=== PATIENT | male | born 1935 | race Caucasian/White ===

== ENCOUNTER 2025-03-08 16:50 | Emergency (ER) | payer MEDICARE, OTHER, SELFPAY ==
--- OUTSIDE RECORDS SUMMARY | 2024-09-21 08:00 | XMS_ITS | Continuity of Care Document ---
Author Organization [facility] ic Address [address] [place] [address] Phone Care Team Providers Care Milk Collector Name Role Phone Dmitri Vera MD Unavailable Unavailable Allergies, Adverse Reactions, Alerts Substance Reaction Status Criticality codeine Unknown Active No Information Medications Medication Instructions Dosage Effective Dates (start - stop) Status Comments SIMVASTATIN (unknown strength) Not Available - Active JARDIANCE (unknown strength) Not Available - Active ALLOPURINOL (unknown strength) Not Available - Active ATORVASTATIN CALCIUM (unknown strength) Not Available - Active ELIQUIS (unknown strength) Not Available - Active FAMOTIDINE (unknown strength) Not Available - Active ASPIRIN (unknown strength) Not Available - Active PROPRANOLOL HCL (unknown strength) Not Available - Active METFORMIN HCL (unknown strength) Not Available - Active VITAMIN D2 (unknown strength) Not Available - Active IRON (unknown strength) Not Available - Ac tive OMEGA-3 PLUS VITAMIN D3 (unknown strength) Not Available - Active FLOVENT HFA (unknown strength) Not Available - Active Procedures Procedure Date Refraction Comprehensive Eye Code - Established Apr Refraction Comprehensive Eye Code - Established Apr Comprehensive Eye Code - Established Apr Refraction Lens sphcyl bifocal 4.00d/.1 Tint photochromatic lens/es [place] [employer] Refraction Comprehensive Eye Code - Established Jan Refraction Comprehensive Eye Code - Established Oct Comprehensive Eye Code - Established Oct Refraction IOL Master Extracapsular Cataract Removal 20 Extracapsular Cataract Removal 20 IOL Master IOL Master OCT-Macular Bilateral IOL Master Est Extended E&M LIBRARIAN HEAD Extended E&M IOL Master Advance Directives Directive Yes / No Effective Date File Name No Information Encounters Encounter Description Practice Location Reason(s) For Visit Diagnoses Date Provider Providers Copied on Encounter [facility], [address] [place], [place], [id number] , [place] tel: [phone] [facility] No Information [address] [place], [id number] , [place]. tel: [phone] [facility], [address] [place], [id number] , tel: [phone] [facility] Follow-up Diabetes (chief complaint) Myopia, bilateralType 2 diabetes mellitus without complicationsStrokePr esence of intraocular lensLong term (current) use of oral hypoglycemic drugs [address] [place], [id number] , [place]. tel: [phone] Referring Provider: Dmitri Moreno, [address] [address] [place], [address] . tel:[phone] [facility], [address] [place], [id number] , [place] tel: [phone] [facility] Follow-up Diabetes (chief complaint) Meibomian gland dysfunction right eye, upper and lower eyelidsMeibomian gland dysfunction left eye, upper and lower eyelidsPresence of intraocular lensVitreous degeneration, bilateralStrokeType 2 diabetes mellitus without complicationsLong term (current) use of oral hypoglycemic drugsMyopia, bilateral [address] [place], [id number] , [place]. tel: [phone] Referring Provider: Dmitri Moreno, [address] [place], [address] . tel:[phone] [facility], [address] [place], [id number] , [place] tel: [phone] [facility] No Information [address] [place], [id number] , [place]. tel: [phone] Referring Provider: Dmitri Moreno, [address] [place], [address] . tel:[phone] [place] [address], [address] [place], [id number] , [place] tel: [phone] [facility] follow-up diabetes (chief complaint) Type 2 diabetes mellitus without complicationsLong term (current) use of oral hypoglycemic drugsMeibomian gland dysfunction right eye, upper and lower eyelidsMeibomian gland dysfunction left eye, upper and lower eyelidsPresence of intraocular lensVitreous degeneration, bilateralMyopia, bilateralStroke [address] [place], [id number] , [place]. tel: [phone] Referring Provider: Dmitri Moreno, [address] [place], [address] . tel:[phone] [facility], [address] [place], [id number] , [place] tel: [phone] [facility] Diabetic eye exam (chief complaint) Type 2 diabetes mellitus without complicationsLong term (current) use of oral hypoglycemic drugsVitreous degeneration, bilateralMeibomian gland dysfunction right eye, upper and lower eyelidsMeibomian gland dysfunction left eye, upper and lower eyelidsMyopia, bilateralPresence of intraocular lens [address] [place] [place], [id number] , [place]. tel: [phone] Referring Provider: Dmitri Moreno, [address] [place], [address] . tel:[phone] [facility], [address], [place], [id number] , [place] tel: [phone] [facility] No Information 0 Jody Rizvi. [address] [place], [id number] , [place]. tel: [phone] Referring Provider: Ben Neves, [facility] [address], [address]. tel:[phone] [facility], [address] [place], [id number] , [place] tel: [phone] [facility] No Information 0 Jody Rizvi. [address] [place], [id number] , [place]. tel: [phone] Referring Provider: Ben Neves, [facility] [address], [address]. tel:[phone] [facility], [address] [place], [id number] , [place] tel: [phone] [facility] Age-related nuclear cataract of left eye 0 Jody Rizvi. [address] [place], [id number] , [place]. tel: [phone] Referring Provider: Ben Neves, [facility] [address] [facility] [place], [address]. tel:[phone] [facility], [address] [place], [id number] , [place] tel: [phone] [facility] blurry vision (chief complaint) Meibomian gland dysfunction right eye, upper and lower eyelidsMeibomian gland dysfunction left eye, upper and lower eyelidsAge-related nuclear cataract, bilateralPosterior subcapsular polar age-related cataract, bilateralCortical age-related cataract of left eyeType 2 diabetes mellitus without complicationsLong term (current) use of oral hypoglycemic drugsMyopia, bilateralVitreous degeneration, bilateral 0 Jody Rizvi. [address] [place], [id number] , [place]. tel: [phone] Referring Provider: Ben Neves, [facility] [address] [place], [address]. tel:[phone] [facility], [address] [place], [id number] , [place] tel: [phone] [facility] No Information 0 [employer] Dmitri. [address] [place], [id number] , [place]. tel: [phone] Family History Family Member Type Diagnosis Age At Onset No Information Payers Payer name Insurance type Covered alliance party ID Nitza jang(s) [employer] Medicare MB [id number] [employer] [id number] Social History Type Description Quantity Date Captured Comments Alcohol Use Details Unknown Caffeine Use Details Unknown Tobacco Use Status No Information Smoking Status No Information Sex Male Chief Complaint And Reason For Visit No Information Reason For Referral Reason For Referral No Information Plan Of Treatment Date Type Action Status Referral Referred To: Colin Jimenez [facility]
[address] [place], [phone] Ordered: Referrals: Allopathic & Osteopathic Physicians : Family Medicine. Colin Jimenez ordered History Of Present Illness Encounter Date Complaint History Of Prese nt Illness Follow-up Diabetes Pt states VA OU is unchanged sine last eye exam. Pt denies dryness and pain OU. Follow-up Diabetes The 87 year o ld patient presents for evaluation of Follow-up Diabetes. Pt. states VA OU stable distance and near over the past year. Current glasses working well. No eye pain or discomfort OU. follow-up diabetes The 86 year o ld male presents for evaluation of follow-up diabetes. Pt. states VA OU decreased distance and near over the past 8 months, Pt. had a stroke in May and VA has been off" since. Current glasses are working okay, wants an updated prescription. No eye pain or discomfort OU.Screening for COVID-19: Patient reports no close contact with known COVID-19. Patient denies any COVID-19 symptoms or recent travel. Diabetic eye exam Pt states VA O U unchanged since last exam for distance and near. Pt would like to transfer eye care to [facility]. Pt denies dryness and pain OU.Screening for COVID-19: Patient reports no close contact with known COVID-19. Patient denies any COVID-19 symptoms or recent travel. blurry vision Pt. states DVA O U gradually decreasing X6-9 months. NVA OU is okay. Notes some difficulty reading fine print when not in bright lighting. Denies any eye pain or discomfort OU. Screening for COVID-19; Patient reports no close contact with known COVID-19. Patient denies any COVID-19 symptoms or recent travel. Temperature screening within normal limits today. 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 Impression/Plan Related to Meibo henrietta gland dysfunction right eye, upper and lower eyelids Impression/Plan Related to Meibo henrietta gland dysfunction left eye, upper and lower eyelids Impression/Plan Related to Prese nce of intraocular lens Impression/Plan Related to Vitre ous degeneration, bilateral Impression/Plan Related to Strok e Impression/Plan Related to Type 2 diabetes mellitus without complications Impression/Plan Related to assisted (current) use of oral hypoglycemic drugs Impression/Plan Related to Myopi a, bilateral Impression/Plan Related to Strok e Impression/Plan Related to Type 2 diabetes mellitus without complications Impression/Plan Related to assisted (current) use of oral hypoglycemic drugs Impression/Plan Related to Meibo henrietta gland dysfunction right eye, upper and lower eyelids Impression/Plan Related to Meibo henrietta gland dysfunction left eye, upper and lower eyelids Impression/Plan Related to Prese nce of intraocular lens Impression/Plan Related to Vitre ous degeneration, bilateral Impression/Plan Related to Myopi a, bilateral Impression/Plan Related to Type 2 diabetes mellitus without complications Impression/Plan Related to assisted (current) use of oral hypoglycemic drugs Impression/Plan Related to Vitre ous degeneration, bilateral Impression/Plan Related to Meibo henrietta gland dysfunction right eye, upper and lower eyelids Impression/Plan Related to Meibo henrietta gland dysfunction left eye, upper and lower eyelids Impression/Plan Related to Myopi a, bilateral Impression/Plan Related to Prese nce of intraocular lens Impression/Plan Related to Age-r elated nuclear cataract of left eye Impression/Plan Related to Meibo henrietta gland dysfunction right eye, upper and lower eyelids Impression/Plan Related to Meibo henrietta gland dysfunction left eye, upper and lower eyelids Impression/Plan Related to Age-r elated nuclear cataract, bilateral Impression/Plan Related to Poste rior subcapsular polar age-related cataract, bilateral Impression/Plan Related to Corti tiffanie age-related cataract of left eye Impression/Plan Related to Myopi a, bilateral Impression/Plan Related to Vitre ous degeneration, bilateral Impression/Plan Related to Type 2 diabetes mellitus without complications Impression/Plan Related to terminal gauger (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
--- OUTSIDE RECORDS SUMMARY | 2024-09-21 08:00 | XMS_ITS | Continuity of Care Document ---
Author Organization [facility] ic Address [address] [place] [address] Phone Care Team Providers Care Electronics Processing Supervisor Name Role Phone Dmitri Vera MD Unavailable [...] OCT-Macular Bilateral IOL Master Est Extended E&M LOCKER ROOM ATTENDANT Extended E&M IOL Master Advance Directives Directive Yes / No Effective Date File Name No Information Encounters Encounter Description Practice Location Reason(s) For Visit Diagnoses Date Provider Providers Copied on Encounter [facility], [address] [place], [place], [id number] , [place] tel: [phone] [facility] No Information [address] [place], [id number] , [place]. tel: [phone] [facility], [address] [place] [place], [id number] , tel: [phone] [facility] Follow-up Diabetes (chief complaint) Myopia, bilateralType 2 diabetes mellitus without complicationsStrokePr esence of intraocular lensLong term (current) use of oral hypoglycemic drugs 5 [address] [place] [place], [id number] , [place]. tel: [phone] Referring Provider: Dmitri Moreno, [address] [address] [place], [address] . tel:[phone] [facility], [address] [place] [place], [id number] , [place] tel: [phone] [facility] Follow-up Diabetes (chief complaint) Meibomian gland dysfunction right eye, upper and lower eyelidsMeibomian gland dysfunction left eye, upper and lower eyelidsPresence of intraocular lensVitreous degeneration, bilateralStrokeType 2 diabetes mellitus without complicationsLong term (current) use of oral hypoglycemic drugsMyopia, bilateral [address] [place], [id number] , [place]. tel: [phone] Referring Provider: Dmitri Moreno, [address] [place], [address] . tel:[phone] [facility], [address] [place], [id number] , [place] tel: [phone] [facility] No Information [address] [place], [id number] , [place]. tel: [phone] Referring Provider: Dmitri Moreno, [address] [place], [address] . [phone] [place] [address], [address] [place] [place], [id number] , [place] tel: [phone] [facility] follow-up diabetes (chief complaint) Type 2 diabetes mellitus without complicationsLong term (current) use of oral hypoglycemic drugsMeibomian gland dysfunction right eye, upper and lower eyelidsMeibomian gland dysfunction left eye, upper and lower eyelidsPresence of intraocular lensVitreous degeneration, bilateralMyopia, bilateralStroke [address] [place], [id number] , [place]. tel: [phone] Referring Provider: Dmitri Moreno, [address] [place], [address] . tel:[phone] [facility], [address] [place], [id number] , [place] tel: [phone] [facility] Diabetic eye exam (chief complaint) Type 2 diabetes mellitus without complicationsLong term (current) use of oral hypoglycemic drugsVitreous degeneration, bilateralMeibomian gland dysfunction right eye, upper and lower eyelidsMeibomian gland dysfunction left eye, upper and lower eyelidsMyopia, bilateralPresence of intraocular lens [address] [place], [id number] , [place]. tel: [phone] Referring Provider: Dmitri Moreno, [address] [place], [address] . tel:[phone] [facility], [address], [place], [id number] , [place] tel: [phone] [facility] No Information 0 Jody Rizvi. [address] [place], [id number] , [place]. tel: [phone] Referring Provider: Ben Neves, [facility] [address], [address]. tel:[phone] [facility], [address] [place] [place], [id number] , [place] tel: [phone] [facility] No Information 0 Jody Rizvi. [address] [place], [id number] , [place]. tel: [phone] Referring Provider: Ben Neves, [facility] [address], [address]. tel:[phone] [facility], [address] [place], [id number] , [place] tel: [phone] [facility] Age-related nuclear cataract of left eye 0 Jody Rizvi. [address] [place], [id number] , [place]. tel: [phone] Referring Provider: Ben Neves, [facility] [address] [facility] [place], [address]. tel:[phone] [facility], [address] [place] [place], [id number] , [place] tel: [phone] [facility] blurry vision (chief complaint) Meibomian gland dysfunction right eye, upper and lower eyelidsMeibomian gland dysfunction left eye, upper and lower eyelidsAge-related nuclear cataract, bilateralPosterior subcapsular polar age-related cataract, bilateralCortical age-related cataract of left eyeType 2 diabetes mellitus without complicationsLong term (current) use of oral hypoglycemic drugsMyopia, bilateralVitreous degeneration, bilateral 0 Jody Rizvi. [address] [place], [id number] , [place]. tel: [phone] Referring Provider: Ben Neves, [facility] [address] [place], [address]. tel:[phone] [facility], [address] [place], [id number] , [place] tel: [phone] [facility] No Information 0 [employer] Dmitri. [address] [place], [id number] , [place]. tel: [phone] Family History Family Member Type Diagnosis Age At Onset No Information Payers Payer name Insurance type Covered constitution party ID Nitza jang(s) [employer] Medicare MB [id number] [place] [id number] Social History Type Description Quantity Date Captured Comments Alcohol Use Details Unknown Caffeine Use Details Unknown Tobacco Use Status No Information Smoking Status No Information Sex Male Chief Complaint And Reason For Visit No Information Reason For Referral Reason For Referral No Information Plan Of Treatment Date Type Action Status Referral Referred To: Colin Jimenez [facility]
[address] [place], [phone] Ordered: Referrals: Allopathic & Osteopathic Physicians : [...] would like to transfer eye care to [facility]. 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 Impression/Plan [...] diabetes mellitus without complications Impression/Plan Related to prison (current) use of oral hypoglycemic drugs Impression/Plan Related to Myopi a, bilateral Impression/Plan Related to Strok e Impression/Plan Related to Type 2 diabetes mellitus without complications Impression/Plan Related to prison (current) use of oral hypoglycemic drugs Impression/Plan [...] diabetes mellitus without complications Impression/Plan Related to prison (current) use of oral hypoglycemic drugs Impression/Plan [...] diabetes mellitus without complications 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
--- OUTSIDE RECORDS SUMMARY | 2025-03-08 17:01 | XMS_ITS | Clinical Summary ---
Author Organization [employer] Address [address] [place] [id number] Care Team Providers Care Speech Therapist Early Intervention Name Role Phone Colin Jmienez MD Primary Care Provider Unavaila ble Allergies Active Allergy Reactions Criticality Noted Date Comments Codeine Other High 06/13/2021 Medications acetaminophen (TYLENOL) 500 mg oral Capsule Take 500 mg by mouth twice daily. Active albuterol sulfate (PROVENTIL,LEXI TOLIN,PROAIR) 90 mcg/actuation inhalation HFA Aerosol Inhaler 1-2 Puffs by inhalation route every 4 hours as needed. 1 Active allopurinoL (ZYLOPRIM) 300 mg oral Tablet Take 1 Tablet by mouth once daily. 2 Active cyanocobalamin (VITAMIN B-12) 500 mcg oral Tablet Take 1 Tablet by mouth once daily. 2 Active famotidine (PEPCID) 20 mg oral Tablet Take 1 Tablet by mouth once daily. 1 Active FLOVENT HFA 110 mcg/actuation inhalation HFA Aerosol Inhaler 1 Puff by inhalation route twice daily. 2 Active glimepiride (AMARYL) 2 mg oral Tablet Take 1 Tablet by mouth once daily. 2 Active metFORMIN (GLUCOPHAGE) 500 mg oral Tablet Take 2 Tablets by mouth twice daily with meals. 2 Active [place]-3 Fatty Acids 500 mg oral Capsule Take 1 Capsule by mouth once daily. Active propranoloL (INDERAL) 20 mg oral Tablet Take 1 Tablet by mouth twice daily. 2 Active sennosides-doc usate sodium (SENOKOT-S) 8.6-50 mg oral Tablet Take 1-2 Tablets by mouth once daily. 1 Active atorvastatin (LIPITOR) 40 mg oral Tablet Take 1 Tablet (40 mg) by mouth once daily. 30 Tablet 2 06/13/2021 2:31 PM [employer] 2 Active apixaban (ELIQUIS) 5 mg oral Tablet Take 1 Tablet (5 mg) by mouth twice daily. 60 Tablet 06/13/2021 2:31 PM [employer] 2 Active aspirin (CHILDREN'S ASPIRIN) 81 mg oral Tablet, Chewable Chew and Swallow 1 Tablet (81 mg) by mouth once daily. 30 Tablet 2 06/13/2021 2:31 PM [employer] 2 Active DURABLE MEDICAL EQUIPMENT, OUTSIDE VENDOR, AMBULATORY ONLY,Indicatio ns:Acute ischemic stroke (HCC) Does pt have a mobility limitation that significantly impairs their ability to participate in one or more mobility related ADLs in the home? Yes Is pt able to use equipment to safely complete mobility related ADL's? Yes Is functional mobility deficit sufficiently resolved using the equipment? Yes 1 Each 2 Active Active Problems Problem Noted Date Diagnosed Date Acute ischemic stroke 06/11/2021 Social History Tobacco Use Types Packs/Day Years Used Date Smoking Tobacco: Former Smokeless Tobacco: Never Alcohol Use Standard Drinks/Week Comments Yes 0 (1 standard drink = 0.6 oz pur e alcohol) 6 a month Depression (PHQ-9) Answer Date Recorded Last PHQ-9 Score Not on file 07/30/2021 Thoughts of self harm Not on file 07/30/2021 Sex and Gender Information Value Date Recorded Sex Assigned at Not on file Legal Sex Male 5:23 PM [employer] Gender Identity Not on file Sexual Orientation Not on file Last Filed Vital Signs Vital Sign Reading Time Taken Comments Blood Pressure 129/65 06/13/2021 11:26 AM [employer] Pulse 73 06/13/2021 11:26 AM [employer] Temperature 36.3 C (97.4 F) 06/13/2021 11:26 AM [employer] Respiratory Rate 16 06/13/2021 11:26 AM [employer] Oxygen Saturation 94% 06/13/2021 11:26 AM [employer] Inhaled Oxygen Concentration - - Weight 85.3 kg (188 lb 0.8 oz) 06/11/2021 9:53 P M [employer] Height 167.6 cm (5' 6) 06/11/2021 9:53 PM [employer] Body Mass Index 30.35 06/11/2021 9:53 PM [employer] Plan of Treatment Health Maintenance Due Date Last Done Comments Depression Screening 1947 Respiratory Syncytial Virus (RSV) Vaccine (1 - 1-dose 75+ series) 2012 Varicella Zoster Sequential (2 of 3) 01/14/2014 11/19/2013 DTaP/Tdap/Td Vaccines (2 - Td or Tdap) 10/08/2021 10/09/2011, 09/12/2001 COVID-19 Vaccine (4 - season) 2024 01/30/2021, 06/01/2020, 05/10/2020 Influenza Vaccine (#1) 2024 , 01/11/2020, 01/19/2019, Additional history exists Lipids Standard 06/12/2026 06/12/2021, 12/2020, 08/17/2020, Additional history exists Pneumococcal Vaccine (50+ Years) Completed 12/15/2018, 11/04/2014, 04/08/2007, Additional history exists HIB Vaccines Aged Out No longer eligi ble based on patient's age to complete this topic HPV Vaccines (No Doses Required) Completed Hepatitis A Vaccines Aged Out No long er eligible based on patient's age to complete this topic Hepatitis B Vaccines Aged Out No long er eligible based on patient's age to complete this topic Meningococcal B Vaccines Aged Out No longer eligible based on patient's age to complete this topic Meningococcal Vaccines Aged Out No lo nger eligible based on patient's age to complete this topic Procedures Procedure Name Priority Date/Time Associated Diagnosis Comments LIPID PANEL Routine 06/12/2021 4:06 AM [employer] from Last 3 Months or Most Recently Relevant to Health Maintenance Results * (ABNORMAL) LIPID PANEL (06/12/2021 4:06 AM [employer] MANAGER) Cholesterol 101 <200 mg/dL 06/12/2021 6:03 AM [employer] MANAGER [facility] Triglycerides 88 30 - 150 mg/dL 06/12/2021 6:03 AM [employer] MANAGER [facility] Cholesterol, LDL (Calculated) 49 0 - 159 mg/dL 06/12/2021 6:03 AM [employer]NAGER [facility] Cholesterol, HDL 34(L) >40 mg/dL 06/13/19 22 6:03 AM [employer]GER [facility] Cholesterol, vLDL 18 mg/dL 022 6:03 AM [employer] MANAGER [facility] Blood VENOUS BLOOD / Unknown Venipuncture / Unknown 06/12/2021 4:06 AM [employer] MANAGER 06/12/2021 4:35 AM [employer] MANAGER us Gail Welch VETERINARY MEDICINE DOCTOR,VETERINARY LABORATORY TECHNICIAN LAB CHEMISTRY ORDERAB LES Final Result [facility] [address] [place] [address] from Last 3 Months or Most Recently Relevant to Health Maintenance Insurance MEDICARE A AND B [facility] icix Advance Directives * Full Code (Latest Code Status on File) Date Activated Date Inactivated Comments 06/11/2021 9:52 PM 06/13/2021 8:00 PM Care Teams Speech Therapist Early Intervention Relationship Specialty Start Date End Date Colin Jimenez MD PCP - General Family Medicine 06/11/21 Additional Source Comments PLEASE NOTE: Replies to this message will not be received.[facility]
--- OUTSIDE RECORDS SUMMARY | 2025-03-08 17:02 | XMS_ITS | Clinical Summary ---
Author Organization [facility] Address [address] [place] [address] Care Team Providers Care Fire Technology Instructor Name Role Phone Dav Mae MD Unavailable [phone] Gene Rmaos OD Unavailable [phone] Candido Costello MD Unavailable [phone] Sg Cunha DC Unavailable [phone] Dilia Rodgers MD Unavailable [phone] Raghu Shukla MD Primary Care P rovider Allergies Active Allergy Reactions Criticality Noted Date Comments Codeine Nightmares High Polyester Fibers Rash 09/04/2023 Reports burning and pimples. Medications lancets As directed. Dispense item covered by pt ins. Test 1 each once daily. 11/27/19 12 Active Xenia-3 Fatty Acids 500 mg capsule Take 1 capsule by mouth once daily. Active acetaminophen (TYLENOL) 500 mg capsuleIndication s:pain,takes with each meal Take 500 mg by mouth 3 times daily. Max acetaminophen dose: 4000mg in 24 hrs. Indications: Pain, takes with each meal Active blood sugar diagnostic (OneTouch Ultra Blue Test Strip) stripIndications: Type 2 diabetes mellitus without complication, 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) Dispense item covered by pt ins. E11.9 NIDDM type II - Test 1 time/day 100 Strip 2 08/18/19 21 Active aspirin (ECOTRIN) 81 mg enteric coated tabletIndications :Cerebrovascular accident (CVA), unspecified mechanism (HC) Take 1 Tablet (81 mg) by mouth once daily with a meal. 100 Tablet 4 06/16/19 22 Active albuterol HFA (PRO-AIR; VENTOLIN; PROVENTIL) 90 mcg/actuation inhalerIndication s:Chronic obstructive pulmonary disease, unspecified COPD type (HC) Inhale 2 Puffs by mouth every 6 hours if needed for Shortness of Breath 1st choice. 1 Each 11 01/10/20 23 Active empagliflozin (Jardiance) 10 mg tabletIndications :Type 2 diabetes mellitus with other circulatory complications (HC) Take 1 Tablet (10 mg) by mouth once daily. 60 Tablet 2 01/10/20 23 Active Additional Information Patient not taking.Reported on 03/07/2025 triamcinolone (ARISTOCORT) 0.1 % ointmentIndicatio ns:Seborrheic dermatitis of scalp Apply topically to affected area(s) at bedtime if needed (Rash itching). 20 g 2 01/10/20 23 Active fluticasone propionate (Flovent HFA) 110 mcg/Actuation inhalerIndication s:Chronic obstructive pulmonary disease, unspecified COPD type (HC) Inhale 2 Puffs by mouth two times daily. 36 g 11 01/10/20 23 Active blood sugar diagnostic stripIndications: Type 2 diabetes mellitus with other circulatory complications (HC) Dispense item covered by pt ins. E11.9 NIDDM type II - Test 1 time/day 100 Each 2 02/06/20 23 Active simvastatin (ZOCOR) 5 mg tablet Take 1 Tablet by mouth at bedtime. 03/04/20 24 026 Active ferrous sulfate (Iron) 325 mg (65 mg iron) tablet Take 1 Tablet (325 mg) by mouth. 10/22/19 25 Active ibuprofen/diphenh ydramine cit (MOTRIN PM ORAL) Take by mouth at bedtime. Active cyanocobalamin (Vitamin B-12) 500 mcg tablet Take 500 mcg by mouth once daily. Active blood-glucose meter (Blood Glucose Monitoring)Indica tions:Type 2 diabetes mellitus with diabetic polyneuropathy, 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) Dispense meter covered by pts insurance. 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 90 Tablet 3 02/24/20 25 Active apixaban (ELIQUIS) 5 mg tabletIndications :Cerebrovascular accident (CVA), unspecified mechanism (HC) Take 1 Tablet (5 mg) by mouth two times daily. 180 Tablet 3 02/24/20 25 Active famotidine (PEPCID) 20 mg tabletIndications :Chronic GERD Take 1 Tablet (20 mg) by mouth two times daily. 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 90 Tablet 4 01/10/20 23 025 Discontin ued(Reord er (E-cancel not sent)) apixaban (ELIQUIS) 5 mg tabletIndications :Cerebrovascular accident (CVA), unspecified mechanism (HC) Take 1 Tablet (5 mg) by mouth two times daily. 180 Tablet 4 01/10/20 23 025 Discontin ued(Reord er (E-cancel not sent)) famotidine (PEPCID) 20 mg tabletIndications :Chronic GERD Take 1 Tablet (20 mg) by mouth two times daily. 180 Tablet 4 01/10/20 23 025 Discontin ued(Reord er (E-cancel not sent)) Active Problems Problem Noted Date Diagnosed Date Orthostatic hypotension 02/23/2025 Stage 3 chronic kidney disea se, unspecified whether stage 3a or 3b CKD 02/04/2025 Primary osteoarthritis of right knee 12/22/2024 Overview (12/22/2024): Previous cortisone and hyaluronic acid injections when he lived [place]. Dec 2024: Dr. Contreras did bilateral Synvisc ONE knee injections. Primary osteoarthritis of left knee 12/22/2024 Overview (12/22/2024): Previous cortisone and hyaluronic acid injections when he lived [place]. Dec 2024: Dr. Contreras did bilateral Synvisc ONE knee injections. Benign essential tremor 03/04/2024 History of colon polyps 12/25/2023 Type 2 diabetes mellitus 06/27/2021 Overview (10/28/2024): AI Summary: The patient presented for follow-up of type 2 diabetes mellitus. Type 2 diabetes mellitus was in the patient's history and was treated with oral medication. It was mentioned that the patient recently discontinued metformin therapy. 09/15/24: A1c 7.5 % 09/15/24: Cr 1.13 mg/dL On meds: empagliflozin, glimepiride Recent encounter dx: 09/15/24: Hospital Encounter - Lab, [facility] (from [facility]) 09/15/24: Office Visit - Primary Care, [facility] (from [facility]) 08/17/24: Office Visit - Podiatry, [facility] (from [facility]) 07/28/24: Office Visit - Primary Care, [facility] (from [facility]) 06/08/24: Office Visit - Podiatry, [facility] (from [facility]) Recent studies: 10/04/19: Diabetes Eye Exam - DIABETIC EYE EXAM, [facility], 10/04/19 by MARIO MAXWELL ... [+] Type 2 diabetes mellitus without complications (E11.9). ... [+] __ [impression Type 2 diabetes mellitus withaut complications: E11.9. No diabetic retinopathy. Recent notes: 06/21/24: Progress Notes by Candido Costello MD ... [+] ? Type 2 diabetes mellitus without complication (HC) E11.9 06/08/24: Progress Notes by Arturo Beauchamp DPM (from [facility]) ... [+] Diagnosis Date Age-related nuclear cataract, bilateral Arthropathy of right wrist Atrial fibrillation (HCC-CMS) 11/25/2014 Chronic airway obstruction ([facility]) Chronic GERD 12/05/2016 Chronic obstructive pulmonary disease ([facility]) 11/25/2014 Diverticulosis 11/25/2014 Dyspepsia 11/25/2014 Dyspnea and respiratory abnormalities 10/28/2007 Essential (primary) hypertension 05/18/2015 GERD with eso... ... [+] 7) type 2 diabetes mellitus with diabetic peripheral neuropathy 06/07/24: Progress Notes by Mario Maxwell MD (from [facility]) ... [+] Kem Swain is a 88 year old male who presents to the clinic for follow-up of type 2 diabetes, paroxysmal A-fib, COPD. ... [+] Type 2 diabetes mellitus with other circulatory complications ([facility]) 03/04/24: Progress Notes by Mario Maxwell MD (from [facility]) ... [+] HPI: 88-year-old adult male with history of CVA history of type 2 diabetes, COPD, chronic GERD, gout, essential tremor who is in for annual follow-up as well as Medicare wellness. ... [+] Type 2 diabetes mellitus with other circulatory complications ([facility]) 06/27/2021 ... [-] E11.9 NIDDM TYPE II - TEST 1 TIME/DAY indomethacin (INDOCIN) 50 mg capsule 1 capsule up to 3 times daily as needed for acute gout ... [+] Past Medical History: Diagnosis Date Age-related nuclear cataract, bilateral Arthropathy of right wrist Atrial fibrillation ([facility]) 11/25/2014 Chronic airway obstruction ([facility]) Chronic GERD 12/05/2016 Chronic obstructive pulmonary disease ([facility]) 11/25/2014 Diverticulosis 11/25/2014 Dyspepsia 11/25/2014 Dyspnea and respiratory abnormalities 10/28/2007 Essential (primary) hypertension 02... 02/05/24: Progress Notes by Mario Maxwell MD (from [facility]) ... [+] Kem Swain is a 88 year old male who presents to the clinic for follow-up of type 2 diabetes mellitus, weight loss, GERD, esophageal candidiasis, colon polyps. Onychomycosis 06/27/2021 Cerebrovascular accident (CVA) 06/15/2021 Overview (10/28/2024): 05/2021 Presentation was confusion and dysphagia TISSUE PLASMINOGEN ACTIVATOR given, transferred to [facility] MRA findings:IMPRESSION: Normal MRA neck/carotids. 1. Focal 50% narrowing left A2 segment 2. Otherwise, negative head MRA elsewhere Treatment: atorvastatin, aspirin 81mg, 05/2021 Presentation was confusion and dysphagia TISSUE PLASMINOGEN ACTIVATOR given, transferred to [facility] MRA findings:IMPRESSION: Normal MRA neck/carotids. 1. Focal 50% narrowing left A2 segment 2. Otherwise, negative head MRA elsewhere Treatment: atorvastatin, aspirin 81mg, Paroxysmal atrial fibrillation 06/15/2021 Overview (10/28/2024): This has been noted on a holter in the past but then not considered significant in [address] Costello, however, the patient has now had a stroke. Put on eliquis by neurology Will do holter to evaluate this further and follow up with cardiology again to discuss anticoagulation. AI Summary: Atrial fibrillation was in the patient's history since 11/25/2014, with a possible etiology of A fib mentioned. The patient also had a history of paroxysmal atrial fibrillation and was on aspirin, presumably due to a low-risk score, but there was a plan to transition to DOAC during an admission. 09/15/24: HR 55.0 /min On meds: apixaban, aspirin, glimepiride, propranolol Recent encounter dx: 09/15/24: Office Visit - Primary Care, [facility] (from [facility]) 06/07/24: Office Visit - Primary Care, [facility] (from [facility]) 03/04/24: Office Visit - Primary Care, [facility] (from [facility]) 12/25/23: Office Visit - Primary Care, [facility] (from [facility]) 09/25/23: Office Visit - Primary Care, [facility] (from [facility] ) Recent studies: 06/15/21: Holter Monitor - HOLTER MONITOR REPORT, [facility], 06/15/21 - 06/22/21 by GARY SCHAEFER ... [+] Primary Indication (I48.0) Paroxysmal atrial fibrillation ... [-] Atrial Fibrillation None found 06/03/16: Holter Monitor - 48 HOLTER MONITOR 06/04/2016 [facility] ... [-] Medication: Indications: Atrial fibrillation ... [-] AFib percent 0.00 05/04/15: Holter Monitor - HOLTER MONITOR/05/05/15/[facility] ... [-] Medication: Indications: atrial fibrillation 11/11/14: ECHO by Mario Maxwell MD, Candido Costello MD ... [+] [address], [address] [place] [address] [email or web address] Date: 11/11/2014 Ordering Provider: Mario Maxwell MD Preliminary Diagnosis: Atrial fibrillation. 11/11/14: Echocardiogram-Interpret - OP ECHO COMPLETE 11-11-14 DR MARILYN MCKEON LEISENRING ... [+] Preliminary Diagnosis: Atrial fibrillation. ... [+] Preliminary Diagnosis AFIB. ... [+] AFIB Rhythm 14.00 RA Area (cm2) PVS ... [-] Code [Diagnostic Name _ [Assessment(s) __--------s [Notes __ [Instructions IUSECHO ----s=*([427.31, Atrial fibrillation __ Recent notes: 06/21/24: Progress Notes by Candido Costello MD ... [-] Kem Swain is an 88-year-old , physically active gentleman with a history of symptomatic PAT versus brief paroxysmal atrial fibrillation. ... [+] Discharge summary [facility] incorrectly identifies patient is having chronic atrial fibrillation. 06/08/24: Progress Notes by Arturo Beauchamp DPM (from [facility]) ... [+] Diagnosis Date Age-related nuclear cataract, bilateral Arthropathy of right wrist Atrial fibrillation (HCC-CMS) 11/25/2014 Chronic airway obstruction ([facility]) Chronic GERD 12/05/2016 Chronic obstructive pulmonary disease (HCC-CMS) 11/25/2014 Diverticulosis 11/25/2014 Dyspepsia 11/25/2014 Dyspnea and respiratory abnormalities 10/28/2007 Essential (primary) hypertension 05/18/2015 GERD with eso... 06/07/24: Progress Notes by Mario Maxwell MD (from [facility]) ... [+] Paroxysmal atrial fibrillation (HCC-CMS) 03/04/24: Progress Notes by Mario Maxwell MD (from [facility]) ... [+] Paroxysmal atrial fibrillation (HCC-CMS) 06/15/2021 ... [+] Past Medical History: Diagnosis Date Age-related nuclear cataract, bilateral Arthropathy of right wrist Atrial fibrillation (HCC-CMS) 11/25/2014 Chronic airway obstruction ([facility]) Chronic GERD 12/05/2016 Chronic obstructive pulmonary disease (HCC-CMS) 11/25/2014 Diverticulosis 11/25/2014 Dyspepsia 11/25/2014 Dyspnea and respiratory abnormalities 10/28/2007 Essential (primary) hypertension 02... 10/02/23: OR Notes - Anesthesia Preprocedure Evaluation by Damon Alicia APRN, CRNA (from [facility] ) ... [+] (+) Paroxysmal atrial fibrillation (HCC-CMS) This has been noted on a holter in the past but then not considered significant in [address] Costello, however, the patient has now had a stroke. Put on eliquis by neurology Will do holter to evaluate this further and follow up with cardiology again to discuss anticoagulation. PAT (paroxysmal atrial tachycardia) 02/25/2020 Neuropathy 06/15/2019 ACP (advance care planning) 12/07/2017 Overview (10/28/2024): Patient has identified Health Care Agent(s): Yes Add Health Care Agents: Yes Health Care Agent(s): Primary Health Care Agent: Sindhu Brynn Relationship: Secondary Health Care Agent: Relationship: Phone: Conservator: Relationship: Phone: Guardian: Relationship: Phone: Patient has Advance Care Plan Documents (Health Care Directive, POLST): Yes Advance Care Plan Documents: Health Care Directive Patient has identified Specific Treatment Preferences: Yes How have preferences been verified: HCD Specific Treatment Preferences: a.) Code Status: CPR/Attempt Resuscitation I want CPR Attempted if my heart or breathing stops based on my current state of health. However, in the future if my health has changed for example: I have an incurable illness or injury and am dying I have no reasonable chance of survival if my heart or breathing stops I have little chance of long-term survival if my heart or breathing stops and CPR would cause significant suffering Then my agent or I if I am able should discuss CPR with my health care team. If I can no longer make decisions for myself, and my health care team and agent believe I will not recover my ability to know who I am, I want to stop or withhold all treatments that extend my life. I want to donate my eyes, tissues and or organs if able. I do not want an autopsy unless required by law. Please see scanned document for further details. Patient has identified Health Care Agent(s): Yes Add Health Care Agents: Yes Health Care Agent(s): Primary Health Care Agent: Sindhu Swain Relationship: Secondary Health Care Agent: Relationship: Phone: Conservator: Relationship: Phone: Guardian: Relationship: Phone: Patient has Advance Care Plan Documents (Health Care Directive, POLST): Yes Advance Care Plan Documents: Health Care Directive Patient has identified Specific Treatment Preferences: Yes How have preferences been verified: HCD Specific Treatment Preferences: a.) Code Status: CPR/Attempt Resuscitation I want CPR Attempted if my heart or breathing stops based on my current state of health. However, in the future if my health has changed for example: I have an incurable illness or injury and am dying I have no reasonable chance of survival if my heart or breathing stops I have little chance of long-term survival if my heart or breathing stops and CPR would cause significant suffering Then my agent or I if I am able should discuss CPR with my health care team. If I can no longer make decisions for myself, and my health care team and agent believe I will not recover my ability to know who I am, I want to stop or withhold all treatments that extend my life. I want to donate my eyes, tissues and or organs if able. I do not want an autopsy unless required by law. Please see scanned document for further details. 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 Personal history of tobacco use, presenting hazards to health 10/28/2007 Overview (10/28/2024): Quit 1972 Quit 1972 Family history of ischemic heart disease 008 Arthropathy of right wrist Chronic sinusitis Diverticulosis of colon without hemorrhage PVD (peripheral vascular disease) Resolved Problems Problem Noted Date Diagnosed Date Resolved Date GERD with esophagitis 01/02/20172019 Overview (01/02/2017): Added automatically from request for surgery [id number] Diabetes 11/25/2014 12/05/2016 Atrial fibrillation 11/25/2014 12/23/19 20 Dyspepsia 11/25/2014 03/22/2019 Overview (11/25/2014): GERD Chronic airway obstruction 10/09/2011 0 12/23/2019 Type 2 diabetes mellitus without complication 10/09/19 12 06/27/2021 Overview (01/21/2025): Not stated as uncontrolled Diagnosis Code replaced due to regulatory update Other dyspnea and respiratory abnormality 10/28/2007 12/23/2019 Overview (10/28/2007): Six month history of progressive dyspnea and decreased exercise tolerance Adenosine myoview 10/02/07 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% POSSIBLE PERIPHERAL VASCULAR DISEASE 10/28/2007 06/15/2019 Overview (04/26/2015): Left calf discomfort JIM's 10/08/07-right 1.17, left 1.16 Personal history of other di seases of the circulatory system 10/28/2024 Encounters Date Type Department Care Team Description 03/08/2025 11:15 AM FINANCE AND ADMINISTRATION MANAGER Orders Only [facility] [address] [place] [address] Lab, [place] <No scans attached> 03/08/2025 Telephone [facility] [address] [place] [address] [address] Royal Watson MD 03/07/2025 2:00 PM FINANCE AND ADMINISTRATION MANAGER Nurse/Clinic Staff Only [facility] [address] [place] [address] Cardiovascular Diagnostic Testing (Remove Zio Patch) 03/07/2025 1:00 PM FINANCE AND ADMINISTRATION MANAGER Office Visit [facility] [address] [place] [address] Uzma Flores MD Diarrhea (Ongoing for months ); Dizziness (Ongoing for months ); Follow Up (Last seen 02/23/25) 03/07/2025 Travel 03/07/2025 Nurse Triage [facility] [address] [place] [address] Rahgu Shukla MD Diarrhea 03/07/[address] [place] [address] Raghu Shukla MD Error-please disregard 03/03/[address] [address] Raghu Shukla MD Results 03/02/2025 1:00 PM FINANCE AND ADMINISTRATION MANAGER Ancillary Procedure [facility] [address] [place] [address] 03/01/2025 Travel 02/25/2025 11:45 AM FINANCE AND ADMINISTRATION MANAGER Orders Only [address] [address] Lab, [place] Lab 02/25/2025 Orders Only [address] [address] Raghu Shukla MD 1 scan: (1-Ord) NFLD-EKG-02/23/25 02/25/2025 Travel 02/24/2025 Orders Only [address] [address] Sarah Luevano <No scans attached> 02/24/2025 Telephone [facility] [address] [place] [address] Raghu Shukla MD Results 02/24/2025 E-Consult [facility] [address] [facility] [address] [place] [id number] Mazin Bernard MD 02/23/2025 2:15 PM FINANCE AND ADMINISTRATION MANAGER Office Visit [facility] [address] [facility] [address] [address] Raghu Shukla MD Dizziness (Slight, but constant); Diarrhea (No episodes today ); Medication Management (Refills medications ) 02/23/2025 Travel 02/22/2025 Travel 02/18/2025 Telephone [facility] [address] [facility] [address] Raghu Shukla MD Failed Appointment 02/08/2025 Orders Only [facility] [address] [facility] [address] Raghu Shukla MD 1 scan: (1-Ord) NFLD-EKG-02/04/25 02/07/2025 Telephone [facility] [address] [place] [address] Raghu Shukla MD Results 02/04/2025 11:15 AM CDT Office Visit [facility] [address] [place] [address] Raghu Shukla MD Dizziness (Pt didn't help- still having the episodes; off and on feeling it today /Diarrhea for the last 3 days , trying to stay well hydrated ) 02/04/2025 Travel 02/04/2025 Nurse Triage [facility] [address] [facility] [address] Raghu Shukla MD Error-please disregard 02/01/2025 Travel 12/22/2024 2:00 PM CDT Nurse/Clinic Staff Only [facility] [address] [facility] [address] Blood Pressure 2024 10:45 AM CDT Office Visit [facility] [address] [place] [address] David Contreras MD Musculoskeletal Problem (Consultation for Bilateral Knee pain/) 2024 Travel 12/20/2024 Travel from Last 3 Months Immunizations Immunization Administration Dates Next Due AMB Influenza, IIV4 PF (=>6 mos Flulaval,Fluzone Fluarix)(Flu Clinic Only) 01/11/2020,01/19/2019 Amb Influenza, Inact (High-d ose) (Flu Clinic Only) 01/15/2018,01/23/2017,02/07/2016 COVID-19 vaccine (Pfizer-Bio NTech 30mcg/0.3mL) 12YO+ BIVALENT PF, MDV 01/17/2022 COVID-19 vaccine (Pfizer-Bio NTech 30mcg/0.3mL) 12YO+ CECY-SUCROSE PF, MDV 08/16/2021 COVID-19 vaccine (PriceSpot-Bio NTech 30mcg/0.3mL) PF, MDV 08/16/2021,01/30/2021,06/01/2020,2020 Influenza Virus, Unspecified 01/30/2022, 01/30/2021,01/13/2020,2012 Influenza, High-dose Inactivated 01/25/2015 Influenza, Inactivated AIIV4 (Age 65+ Years) Preserv Free 01/24/2023,01/30/2022,01/30/2021 Influenza, Inactivated IIV3 (Age 65+ Years) Preserv Free 02/05/2024 Pneumococcal Poly,23-Valent (Pneumovax) 12/15/2018,04/08/2007,03/14/2007,2001 Pneumococcal conj 13-Valent (Prevnar 13) 11/04/2014 Pneumococcal, Unspecified 03/14/2007,03/01/2002 TD, UNSPECIFIED 01/31/2023 Td (Age >=7 Years) 09/12/2001 Tdap 10/09/2011,09/13/2011 Zoster (Shingrix-RZV, recombinant) 06/29/2020, Zoster (Zostavax-ZVL, live) 11/19/2013, 4 Family History Medical History Relation Name Comments Heart Disease Brother fatal AMI age 62 Heart Disease Father Other Mother Alzheimers Other Son Aids Relation Name Status Comments Brother Father Mother Son Social History Tobacco Use Types Packs/Day Years Used Date Smoking Tobacco: Former Cigarettes 3 15 0 04/14/1956 - 04/14/1971 Smokeless Tobacco: Never Alcohol Use Standard Drinks/Week Comments Not Currently 7 (1 standard drink = 0.6 oz pur e alcohol) 0 weekly since stroke PHQ-2 Answer Date Recorded PHQ-2 TOTAL SCORE 0 01/09/2023 Social Connections Answer Date Recorded Do you often feel lonely or isolated from those around you? 0 10/29/2024 Financial Resource Strain Answer Date R ecorded Difficulty of Paying Living Expenses 3 10/29/2024 Difficulty of Paying Living Expenses Not on file 10/29/2024 Food Insecurity Answer Date Recorded Do you worry your food will run out before you are able to buy more? 1 10/29/2024 Transportation Needs Answer Date Record ed Does lack of transportation keep you from medica l appointments? 1 10/29/2024 Does lack of transportation keep you from work, meetings or getting things that you need? 1 10/29/2024 Housing Stability Answer Date Recorded What is your housing situation today? 1 10/29/2024 Utilities Answer Date Recorded Do you have trouble paying f or utilities (for example, heat, electricity, water, phone)? 1 10/29/2024 Sex and Gender Information Value Date Recorded Sex Assigned at Not on file Legal Sex Male 6:56 AM FINANCE AND ADMINISTRATION MANAGER Gender Identity Not on file Sexual Orientation Not on file Obstetrics History Last Filed Vital Signs Vital Sign Reading Time Taken Comments Blood Pressure 108/59 03/07/2025 1:03 PM FINANCE AND ADMINISTRATION MANAGER Pulse 67 03/07/2025 1:03 PM FINANCE AND ADMINISTRATION MANAGER Temperature 36.6 C (97.9 F) 02/21/2023 10:19 AM FINANCE AND ADMINISTRATION MANAGER Respiratory Rate 25 06/11/2021 8:33 PM FINANCE AND ADMINISTRATION MANAGER Oxygen Saturation 100% 03/07/2025 1:03 PM FINANCE AND ADMINISTRATION MANAGER Inhaled Oxygen Concentration - - Weight 66 kg (145 lb 9.6 oz) 02/23/2025 2:13 PM FINANCE AND ADMINISTRATION MANAGER Height 175 cm (5' 8.9) 10/29/2024 11:06 AM CDT Body Mass Index 21.57 10/29/2024 11:06 AM CDT Plan of Treatment Upcoming Encounters Date Type Department Care Team (Late st Contact Info) Description 03/21/2025 11:30 AM FINANCE AND ADMINISTRATION MANAGER Office Visit [facility] [address] [place] [address] Uzma Flores MD [address] [place] [address] Health Maintenance Due Date Last Done Comments RSV vaccine for adults or (1 - 1-dose 75+ series) 2012 Depression screening for age 12+ 01/10/2024 01/09/2023, 01/09/2023, 12/27/2021, Additional history exists COVID-19 vaccine series ( season) 2024 01/17/2022, 08/16/2021, 08/16/2021, Additional history exists Influenza Vaccine (#1) 2024 , 01/24/2023, 01/30/2022, Additional history exists Medicare Wellness for age 65+ 03/05/2025 03/04/2024 (Verified in Care Everywhere or Patient Record), 01/09/2023, 12/27/2021, Additional history exists BMI (ht and wt on same day) for age 18+ 10/29/2025 10/29/2024, 06/21/2024, 01/09/2023, Additional history exists Tetanus booster 01/31/2033 01/31/2023, 09/13, 09/13/2011, Additional history exists Pneumococcal series for age 50+ Completed 12/15/2018, 11/04/2014, 04/08/2007, Additional history exists Zoster (shingles) series for age 50+ Completed 06/29/2020, 03/02/2020, 11/19/2013, Additional history exists Hepatitis B series for 19+ Aged Out N o longer eligible based on patient's age to complete this topic Medical Devices Implanted Type Area Automatic Wheel Line Operator Device Identifier Shelf Expiration Date Model / Serial / Lot Lens Tecnis Aspheric Acrylic [id number] - [id number] Implanted:Qty : 1 on 10/25/2019 by Dmitri Vera MD at [facility] Opthalmology Implants Right: Eye Spotzer [facility] 06/01/2024 [id number] / [id number] / N/A Lens Tecnis Aspheric Acrylic [id number] - [id number] Implanted:Qty : 1 on 11/08/2019 by Dmitri Vera MD at [facility] Opthalmology Implants Left: Eye Aaron And Aaron [facility] 06/22/2024 [id number] / [id number] / Procedures Procedure Name Priority Date/Time Associated Diagnosis Comments PERIPHERAL BLD MORPHOLOGY Routine 03/07/2025 2:09 PM FINANCE AND ADMINISTRATION MANAGER Macrocytic anemia Dizziness CBC WITH AUTO DIFFERENTIAL STAT 03/07/2025 2:09 PM FINANCE AND ADMINISTRATION MANAGER Macrocytic anemia Dizziness COMP METABOLIC PANEL Routine 03/07/2025 2:09 PM FINANCE AND ADMINISTRATION MANAGER Dizziness RETICULOCYTES STAT 03/07/2025 2:09 PM FINANCE AND ADMINISTRATION MANAGER Macrocytic anemia Dizziness CBC WITH AUTO DIFFERENTIAL STAT 03/07/2025 2:09 PM FINANCE AND ADMINISTRATION MANAGER Macrocytic anemia Dizziness ECHO TTE COMPLETE WO CONTRAST PREMA 03/02/2025 1:38 PM FINANCE AND ADMINISTRATION MANAGER Dizziness Paroxysmal atrial fibrillation (HC) Orthostatic hypotension EKG 12 LEAD Routine 02/25/2025 4:33 PM FINANCE AND ADMINISTRATION MANAGER Dizziness Paroxysmal atrial fibrillation (HC) AL READING EKG - NO CHARGE, COMP ONLY Routine 02/25/2025 4:32 PM FINANCE AND ADMINISTRATION MANAGER Dizziness Paroxysmal atrial fibrillation (HC) IRON PLUS IRON BINDING CAP Add On 02/23/2025 3:10 PM FINANCE AND ADMINISTRATION MANAGER Anemia of unknown etiology RETICULOCYTES Add On 02/23/2025 3:10 PM FINANCE AND ADMINISTRATION MANAGER Anemia of unknown etiology TSH WITH REFLEX Routine 02/23/2025 3:10 PM FINANCE AND ADMINISTRATION MANAGER Dizziness Paroxysmal atrial fibrillation (HC) PHOSPHORUS Routine 02/23/2025 3:10 PM FINANCE AND ADMINISTRATION MANAGER Dizziness Paroxysmal atrial fibrillation (HC) MAGNESIUM Routine 02/23/2025 3:10 PM FINANCE AND ADMINISTRATION MANAGER Dizziness Paroxysmal atrial fibrillation (HC) COMP METABOLIC PANEL Routine 02/23/2025 3:10 PM FINANCE AND ADMINISTRATION MANAGER Dizziness Acute diarrhea CBC W PLT NO DIFF Routine 02/23/2025 3:1 0 PM FINANCE AND ADMINISTRATION MANAGER Dizziness Acute diarrhea EKG 12 LEAD Routine 02/08/2025 11:06 AM CDT Orthostatic hypotension AL READING EKG - NO CHARGE, COMP ONLY Routine 02/08/2025 11:05 AM CDT Orthostatic hypotension FOLIC ACID Add On 02/04/2025 12:52 PM CDT Macrocytic anemia VITAMIN B12 Add On 02/04/2025 12:52 PM CDT Macrocytic anemia HEMOGLOBIN Routine 02/04/2025 12:52 PM CDT Orthostatic hypotension Type 2 diabetes mellitus with diabetic polyneuropathy, 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) BASIC METABOLIC PANEL Routine 02/04/2025 12:52 PM CDT Orthostatic hypotension Type 2 diabetes mellitus with diabetic polyneuropathy, 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) HEMOGLOBIN A1C Routine 02/04/2025 12:52 PM CDT Orthostatic hypotension Type 2 diabetes mellitus with diabetic polyneuropathy, 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) from Last 3 Months Results * (ABNORMAL) CBC WITH AUTO DIFFERENTIAL (03/07/2025 2:09 PM FINANCE AND ADMINISTRATION MANAGER) [facility] WHITE BLOOD COUNT 5.1 4.5 - 11.0 thou/cu mm 03/07/2025 10:55 PM FINANCE AND ADMINISTRATION MANAGER [facility] TRAL LABORATORY RED BLOOD COUNT 2.77(L) 4.30 - 5.90 mil/cu mm 03/07/2025 10:55 PM FINANCE AND ADMINISTRATION MANAGER [facility] TRAL LABORATORY HEMOGLOBIN 9.3(L) 13.5 - 17.5 g/dL 03/07/2025 10:55 PM [facility] TRAL LABORATORY HEMATOCRIT 28.8(L) 37.0 - 53.0 % 03/07/2025 10:55 PM [facility] TRAL LABORATORY MCV 104(H) 80 - 100 fL 03/07/2025 10:55 PM [facility] TR[facility] LAB[facility]ATORY MCH 33.6 26.0 - 34.0 pg 03/07/2025 10:55 PM [facility] TRAL LAB[facility]ORY MCHC 32.3 32.0 - 36.0 g/dL 03/07/2025 10:55 PM [facility] TRAL LAB[facility]ATORY RDW 14.4 11.5 - 15.5 % 03/07/2025 10:55 PM [facility] TR[facility] LAB[facility] PLATELET COUNT 325 140 - 440 thou/cu mm 03/07/2025 10:55 PM [facility] TR[facility] LAB[facility] MPV 9.8 6.5 - 11.0 fL 03/07/2025 10:55 PM [facility] LAB[facility] NRBC 0.0 % 03/07/2025 10:55 PM [facility] TR[facility] LAB[facility] ABS NRBC 0.0 thou /cu mm 03/07/2025 10:55 PM [facility] LAB[facility] % NEUT 56.0 % 03/07/2025 10:55 PM [facility] LAB[facility] % LYMPH 25.9 % 03/07/2025 10:55 PM [facility] TR[facility] LAB[facility] % MONO 12.5 % 03/07/2025 10:55 PM [facility] % EOS 3.8 % 03/07/2025 10:55 PM [facility] TR[facility] LAB[facility] % BASO 1.4 % 03/07/2025 10:55 PM [facility] LAB[facility] % IMMATURE GRAN (METAS,MYELOS,AL OS) 0.4 % 03/07/2025 10:55 PM [facility] TR[facility] LAB[facility] ABSOLUTE NEUTROPHILS 2.8 1.7 - 7.0 thou/cu mm 03/07/2025 10:55 PM FINANCE AND ADMINISTRATION MANAGER [facility] TRAL LABORATORY ABSOLUTE LYMPHOCYTES 1.3 0.9 - 2.9 thou/cu mm 03/07/2025 10:55 PM FINANCE AND ADMINISTRATION MANAGER [facility] TRAL LABORATORY ABSOLUTE MONOCYTES 0.6 <0.9 thou/cu mm 03/07/2025 10:55 PM FINANCE AND ADMINISTRATION MANAGER [facility] TRAL LABORATORY ABSOLUTE EOSINOPHILS 0.2 <0.5 thou/cu mm 03/07/2025 10:55 PM FINANCE AND ADMINISTRATION MANAGER [facility] TRAL LABORATORY ABSOLUTE BASOPHILS 0.1 <0.3 thou/cu mm 03/07/2025 10:55 PM FINANCE AND ADMINISTRATION MANAGER [facility] TRAL LABORATORY ABSOLUTE IMMATURE GRANULOCYTES(MET ,MYELOS,PROS) 0.0 <0.3 thou/cu mm 03/07/2025 10:55 PM FINANCE AND ADMINISTRATION MANAGER [facility] TRAL LABORATORY Blood BLOOD SPECIMEN / Unknown [facility] Collect / Unknown 03/07/2025 2:09 PM FINANCE AND ADMINISTRATION MANAGER 03/07/2025 2:09 PM FINANCE AND ADMINISTRATION MANAGER us Uzma Flores MD HEMATOLOGY Fi nal Result [facility] [address] [place], [place] [id number], * PERIPHERAL BLD MORPHOLOGY [00935.2] (03/07/2025 2:09 PM FINANCE AND ADMINISTRATION MANAGER) Case Report Special Hematology Report Case: [id number] Authorizing Provider: Uzma Flores Collected: 03/07/2025 1409 MD Suzanne Ordering Location: [facility] Received: 03/07/2025 1409 Clinic Pathologist: Jose Rivera MD Specimen: Blood 03/08/2025 11:47 AM FINANCE AND ADMINISTRATION MANAGER [facility] EN[facility]AL LABOR[facility] Final Diagnosis PERIPHERAL BLOOD: 1. Macrocytic anemia 2. See comment 03/08/2025 11:47 AM FINANCE AND ADMINISTRATION MANAGER [facility] LABORATORY at 1147 FINANCE AND ADMINISTRATION MANAGER Comment The etiology the patient's macrocytic anemia is not clear from morphologic review. The differential diagnosis includes vitamin B12 deficiency, folate deficiency, alcohol use, medications, hypothyroidism, liver disease, and myeloid neoplasia, among other causes. Clinical correlation is recommended. This case was also reviewed by Suzan Chase MT, ([facility]). 03/08/2025 11:47 AM [facility] Clinical Information Submitted clinical information: N/A 03/08/2025 11:47 AM [facility] CBC and Differential HEMATOLOGY PARAMETERS Tested at: [facility] [employer] [facility] RESULTS EXPECTED VALUES WBC: 5.1 4.5-97u6015/cumm RBC: 2.77 4.30-5.90 mil/cumm DECREASED HGB: 9.3 13.5-17.5 gm/di DECREASED HCT: 28.8 37-53% DECREASED MCV: 104.0 80-100 fl MACROCYTIC MCH: 33.6 26-34 pg MCHC: 32.3 32-36 gm/dl NORMOCHROMIC RDW: 14.4 11.5-15.5% PLT: 325 [id number]/uL MPV: 9.8 6.5-11 fl Retic: 2.2 0.5-1.5% ELEVATED Differential Absolute (%) Expected (%) (x10*9/L) (x10*9/L) Neutrophils: 2.8 (54.9) 1.7-7.0 (42-72%) Lymphocytes: 1.3 (25.5) 0.9-2.9 (20-44%) Monocytes: 0.6 (11.8) <0.9 (0-11%) Eosinophils: 0.2 (3.9) <0.5 (0-2%) Basophils: 0.1 (2) <0.3 (<3.0%) 03/08/2025 11:47 AM [facility] [employer] [facility] Microscopic Description The final diagnosis is based on microscopic examination of an appropriately stained blood smear. 03/08/2025 11:47 AM [facility] [employer] [facility] Additional Information Interpreted at [facility] Central Laboratory - [address] [address] 03/08/2025 11:47 AM FINANCE AND ADMINISTRATION MANAGER [facility] LABORAT[facility] Blood BLOOD SPECIMEN / Unknown [facility] Collect / Unknown 03/07/2025 2:09 PM FINANCE AND ADMINISTRATION MANAGER 03/07/2025 2:09 PM FINANCE AND ADMINISTRATION MANAGER Comment:CURRENT MEDICATIONSC urrent Outpatient Medications: acetaminophen (TYLENOL) 500 mg capsule, Take 500 mg by mouth 3 times daily. Max acetaminophen dose: 4000mg in 24 hrs. Indications: Pain, takes with each meal, Disp: , Rfl: albuterol HFA (PRO-AIR; VENTOLIN; PROVENTIL) 90 mcg/actuation inhaler, Inhale 2 Puffs by mouth every 6 hours if needed for Shortness of Breath 1st choice., Disp: 1 Each, Rfl: 11 allopurinoL (ZYLOPRIM) 300 mg tablet, Take 1 Tablet (300 mg) by mouth once daily., Disp: 90 Tablet, Rfl: 3 apixaban (ELIQUIS) 5 mg tablet, Take 1 Tablet (5 mg) by mouth two times daily., Disp: 180 Tablet, Rfl: 3 aspirin (ECOTRIN) 81 mg enteric coated tablet, Take 1 Tablet (81 mg) by mouth once daily with a meal., Disp: 100 Tablet, Rfl: 4 blood sugar diagnostic (OneTouch Ultra Blue Test Strip) strip, Dispense item covered by pt ins. E11.9 NIDDM type II - Test 1 time/day, Disp: 100 Strip, Rfl: 2 blood sugar diagnostic strip, Dispense item covered by pt ins. E11.9 NIDDM type II - Test 1 time/day, Disp: 100 Each, Rfl: 2 blood-glucose meter (Blood Glucose Monitoring), Dispense meter covered by pts insurance. Check sugars when feeling hypoglycemic or prn, Disp: 1 Each, Rfl: 0 cyanocobalamin (Vitamin B-12) 500 mcg tablet, Take 500 mcg by mouth once daily., Disp: , Rfl: empagliflozin (Jardiance) 10 mg tablet, Take 1 Tablet (10 mg) by mouth once daily. (Patient not taking: Reported on 03/07/2025), Disp: 60 Tablet, Rfl: 2 famotidine (PEPCID) 20 mg tablet, Take 1 Tablet (20 mg) by mouth two times daily., Disp: 180 Tablet, Rfl: 3 ferrous sulfate (Iron) 325 mg (65 mg iron) tablet, Take 1 Tablet (325 mg) by mouth., Disp: , Rfl: fluticasone propionate (Flovent HFA) 110 mcg/Actuation inhaler, Inhale 2 Puffs by mouth two times daily., Disp: 36 g, Rfl: 11 ibuprofen/diphenhydramine cit (MOTRIN PM ORAL), Take by mouth at bedtime., Disp: , Rfl: lancets, As directed. Dispense item covered by pt ins. Test 1 each once daily., Disp: , Rfl: Xenia-3 Fatty Acids 500 mg capsule, Take 1 capsule by mouth once daily., Disp: , Rfl: simvastatin (ZOCOR) 5 mg tablet, Take 1 Tablet by mouth at bedtime., Disp: , Rfl: triamcinolone (ARISTOCORT) 0.1 % ointment, Apply topically to affected area(s) at bedtime if needed (Rash itching)., Disp: 20 g, Rfl: 2 Uzma Flores MD HEMATOLOGY nal Result Performing Organization Address [facility] de Phone Number [facility] [address] [address], [place] * (ABNORMAL) RETICULOCYTES [75294.0] (03/07/2025 2:09 PM FINANCE AND ADMINISTRATION MANAGER) Only the most recent of2 resultswithin the time period is included. RETIC% 2.2(H) 0.5 - 1.5 % 03/07/2025 10:55 PM FINANCE AND ADMINISTRATION MANAGER [facility] RETIC (ABSOLUTE) 0.06 0.03 - 0.08 mil/cu mm 03/07/2025 10:55 PM FINANCE AND ADMINISTRATION MANAGER [facility] Blood BLOOD SPECIMEN / Unknown [facility] Collect / Unknown 03/07/2025 2:09 PM FINANCE AND ADMINISTRATION MANAGER 03/07/2025 2:09 PM FINANCE AND ADMINISTRATION MANAGER Uzma Flores MD HEMATOLOGY Fi nal Result Performing Organization Address [facility] Co de Phone Number [facility] [address] [address], [place] * (ABNORMAL) COMP METABOLIC PANEL (03/07/2025 2:09 PM FINANCE AND ADMINISTRATION MANAGER) Only the most recent of2 resultswithin the time period is included. SODIUM 139 135 - 146 mmol/L 03/08/2025 4:03 AM FINANCE AND ADMINISTRATION MANAGER [facility] POTASSIUM 4.4 3.5 - 5.3 mmol/L 03/08/2025 4:03 AM FINANCE AND ADMINISTRATION MANAGER [facility] CHLORIDE 103 98 - 110 mmol/L 03/08/2025 4:03 AM FINANCE AND ADMINISTRATION MANAGER [facility] CARBON DIOXIDE 26 20 - 32 mmol/L 03/08/2025 4:03 AM FINANCE AND ADMINISTRATION MANAGER [facility] GLUCOSE 134(H) 65 - 99 mg/dL 03/08/2025 4:03 AM FINANCE AND ADMINISTRATION MANAGER [facility] Comment: Fasting reference interval For someone without known diabetes, a glucose value >125 mg/dL indicates that they may have diabetes and this should be confirmed with a follow-up test. CALCIUM 9.4 8.6 - 10.3 mg/dL 03/08/2025 4:03 AM FINANCE AND ADMINISTRATION MANAGER [facility] CREATININE 1.31(H) 0.70 - 1.22 mg/dL 03/08/2025 4:03 AM FINANCE AND ADMINISTRATION MANAGER [facility] BUN/CREATININE RATIO 13 6 - 22 (calc) 03/08/2025 4:03 AM FINANCE AND ADMINISTRATION MANAGER [facility] EGFR 53(L) > OR = 60 mL/min/1. 73m2 03/08/2025 4:03 AM FINANCE AND ADMINISTRATION MANAGER [facility] ALBUMIN 4.3 3.6 - 5.1 g/dL 03/08/2025 4:03 AM FINANCE AND ADMINISTRATION MANAGER [facility] PROTEIN, TOTAL 6.7 6.1 - 8.1 g/dL 03/08/2025 4:03 AM FINANCE AND ADMINISTRATION MANAGER [facility] BILIRUBIN, TOTAL 0.7 0.2 - 1.2 mg/dL 03/08/2025 4:03 AM FINANCE AND ADMINISTRATION MANAGER [facility] ALKALINE PHOSPHATASE 86 35 - 144 U/L 03/08/2025 4:03 AM FINANCE AND ADMINISTRATION MANAGER [facility] ALT 13 9 - 46 U/L 03/08/2025 4:03 AM FINANCE AND ADMINISTRATION MANAGER [facility] AST 14 10 - 35 U/L 03/08/2025 4:03 AM FINANCE AND ADMINISTRATION MANAGER [facility] UREA NITROGEN (BUN) 17 7 - 25 mg/dL 03/08/2025 4:03 AM FINANCE AND ADMINISTRATION MANAGER [facility] GLOBULIN 2.4 1.9 - 3.7 g/dL (calc) 03/08/2025 4:03 AM FINANCE AND ADMINISTRATION MANAGER [facility] ALBUMIN/GLOBULIN RATIO 1.8 1.0 - 2.5 (calc) 03/08/2025 4:03 AM FINANCE AND ADMINISTRATION MANAGER [facility] Blood BLOOD SPECIMEN / Unknown [facility] / Unknown 03/07/2025 2:09 PM FINANCE AND ADMINISTRATION MANAGER 03/07/2025 2:09 PM FINANCE AND ADMINISTRATION MANAGER us Uzma Flores MD CHEMISTRY Fi nal Result [facility] [address] [place] [address], [place] [phone] * ECHO TTE COMPLETE WO CONTRAST (03/02/2025 1:38 PM FINANCE AND ADMINISTRATION MANAGER) AORTIC VALVE MEAN PG 5 mmHg LVEDD 4.5 cm EJECTION FRACTION 55 - 60% Anatomical Region Laterality Modality Ultrasound 03/02/2025 12:4 4 PM FINANCE AND ADMINISTRATION MANAGER Narrative 03/02/2025 2:55 PM FINANCE AND ADMINISTRATION MANAGER ECHOCARDIOGRAM KEM SWAIN : 1935 89 years Study Date: 03/02/2025 12:44:49 PM Gender: M BP: 103/61 mmHg Height: 172.72 cm BSA: 1.78 m Weight: 65.77 kg Tech: TAMMIE Referring MD: RAGHU SHUKLA Site: [facility] Reading Location: [facility] Patient Location: Outpatient. Procedure: 2D, Color Doppler and Spectral Doppler. Indication for study: Dizziness; Paroxysmal atrial fibrillation; Orthostatic hypotension Cardiac Rhythm: With premature ventricular contractions and irregular.Study quality: Fair. Final Impressions: 1. Normal LV size, normal wall thickness, normal global systolic function with an estimated EF of 55 - 60%. 2. Right ventricular cavity size is normal, global systolic RV function is normal. 3. The aortic valve is trileaflet and sclerotic, no stenosis and no regurgitation. 4. The mitral valve is normal, mild mitral regurgitation. 5. Moderately to severely enlarged left atrium (Lavonne 48 mL/m2). 6. The inferior vena cava is normal sized, respiratory size variation greater than 50%. 7. No pericardial effusion. Comparison Compared to prior exam 11/11/2014, LA size increased. Otherwise there has been no significant change. Chamber Sizes and Function Normal left ventricular size, normal wall thickness, normal global systolic function with an estimated EF of 55 - 60%. No resting regional wall motion abnormality visualized. False tendon in left ventricular apex - nonpathologic finding. Left atrial size is severely enlarged. Right ventricular cavity size is normal, global systolic RV function is normal. RV wall thickness is normal. The right atrium is normal. The pulmonary artery is of normal size and origin. The sinus of Valsalva is normal sized. The ascending aorta is normal sized. Valves, RV Pressures and Diastolic Function The aortic valve is trileaflet and sclerotic, no stenosis and no regurgitation. The mitral valve is normal in structure, mild mitral regurgitation. Spectral Doppler shows Grade 1 pattern of LV diastolic filling. The tricuspid valve is normal in structure, trace tricuspid regurgitation. The pulmonic valve is normal. Trace pulmonary regurgitation. Masses, Effusion, Shunts There is no pericardial effusion. The inferior vena cava is normal sized, respiratory size variation greater than 50%. No left to right shunting was detected by limited color flow Doppler interrogation of the interatrial septum. MEASUREMENTS AND CALCULATIONS 2-D Measurements and LV Function: LVID (d) 4.5 cm LV FS% (2D) 33 % LVID (s) 3.0 cm LVOT diameter 2.3 cm IVS (d) 0.8 cm HR 55 bpm LVPW (d) 1.0 cm LA Vol index 48 ml/m2 Ao Sinus 3.8 cm RV Basal Diam 3.5 cm Ao Sinus ULN 4.1 cm * Asc Ao 3.8 cm Asc Ao ULN 4.3 cm * * Input age outside of range, reported values correspond to Age = 82 Diastology: Mitral Tissue Doppler E Peak 0.6 m/s e', Septum 0.07 m/s A Peak 0.8 m/s e', Lateral 0.07 m/s E/A 0.7 E/e' Average 7.97 DT 278 msec Aortic Valve: Vmax 1.5 m/s MARIANELA (V) 2.20 cm VTI 0.31 m MARIANELA (I) 2.08 cm LVOT V max 0.8 m/s Max PG 9 mmHg LVOT VTI 0.16 m Mean PG 5 mmHg SV 65 ml Dim Index 0.50 SV index 37 ml/m CO 3.6 l/min CI 2.0 l/min/m Mitral Valve: MVA 2.7 cm MV P 1/2 81 msec Tricuspid Valve and estimated PA pressures: TAPSE 2.2 cm . This study was interpreted by an [facility] accredited facility. Final Procedure Note Richard Renee MD - 03/02/2025 ECHOCARDIOGRAM KEM SWAIN : 1935 89 years Study Date: 03/02/2025 12:44:49 PM Gender: M BP: 103/61 mmHg Height: 172.72 cm BSA: 1.78 m Weight: 65.77 kg Tech: [facility] Referring MD: RAGHU SHUKLA Site: [facility] Reading Location: [facility] Patient Location: Outpatient. Procedure: 2D, Color Doppler and Spectral Doppler. Indication for study: Dizziness; Paroxysmal atrial fibrillation;Orthostatic hypotension Cardiac Rhythm: With premature ventricular contractions andirregular.Study quality: Fair. Final Impressions: 1. Normal LV size, normal wall thickness, normal global systolic functionwith an estimated EF of 55 - 60%. 2. Right ventricular cavity size is normal, global systolic RV functionis normal. 3. The aortic valve is trileaflet and sclerotic, no stenosis and noregurgitation. 4. The mitral valve is normal, mild mitral regurgitation. 5. Moderately to severely enlarged left atrium (Lavonne 48 mL/m2). 6. The inferior vena cava is normal sized, respiratory size variationgreater than 50%. 7. No pericardial effusion. Comparison Compared to prior exam 11/11/2014, LA size increased. Otherwise there hasbeen no significant change. Chamber Sizes and Function Normal left ventricular size, normal wall thickness, normal globalsystolic function with an estimated EF of 55 - 60%. No resting regionalwall motion abnormality visualized. False tendon in left ventricular apex- nonpathologic finding. Left atrial size is severely enlarged. Rightventricular cavity size is normal, global systolic RV function is normal.RV wall thickness is normal. The right atrium is normal. The pulmonaryartery is of normal size and origin. The sinus of Valsalva is normalsized. The ascending aorta is normal sized. Valves, RV Pressures and Diastolic Function The aortic valve is trileaflet and sclerotic, no stenosis and noregurgitation. The mitral valve is normal in structure, mild mitralregurgitation. Spectral Doppler shows Grade 1 pattern of LV diastolicfilling. The tricuspid valve is normal in structure, trace tricuspidregurgitation. The pulmonic valve is normal. Trace pulmonaryregurgitation. Masses, Effusion, Shunts There is no pericardial effusion. The inferior vena cava is normal sized,respiratory size variation greater than 50%. No left to right shunting wasdetected by limited color flow Doppler interrogation of the interatrialseptum. MEASUREMENTS AND CALCULATIONS 2-D Measurements and LV Function: LVID (d) 4.5 cm LV FS% (2D) 33% LVID (s) 3.0 cm LVOT diameter2.3 cm IVS (d) 0.8 cm HR 55bpm LVPW (d) 1.0 cm LA Vol index 48ml/m2 Ao Sinus 3.8 cm RV Basal Diam3.5 cm Ao Sinus ULN 4.1 cm * Asc Ao 3.8 cm Asc Ao ULN 4.3 cm * * Input age outside of range, reported values correspond to Age = 82 Diastology: Mitral Tissue Doppler E Peak 0.6 m/s e', Septum 0.07 m/s A Peak 0.8 m/s e', Lateral 0.07 m/s E/A 0.7 E/e' Average 7.97 DT 278 msec Aortic Valve: Vmax 1.5 m/s MARIANELA (V) 2.20 cm VTI 0.31 m MARIANELA (I) 2.08 cm LVOT V max 0.8 m/s Max PG 9 mmHg LVOT VTI 0.16 m Mean PG 5 mmHg SV 65 ml Dim Index 0.50 SV index 37 ml/m CO 3.6 l/min CI 2.0 l/min/m Mitral Valve: MVA 2.7 cm MV P 1/2 81 msec Tricuspid Valve and estimated PA pressures: TAPSE 2.2 cm . This study was interpreted by an IAC accredited facility. Final Raghu Shukla MD ECHO ORD Final Result * EKG 12 LEAD (02/25/2025 4:33 PM FINANCE AND ADMINISTRATION MANAGER) Only the most recent of2 resultswithin the time period is included. Raghu Shukla MD EKG ORD Final Result * AL READING EKG - NO CHARGE, COMP ONLY (02/25/2025 4:32 PM FINANCE AND ADMINISTRATION MANAGER) Only the most recent of2 resultswithin the time period is included. Raghu Shukla MD PB - PROVIDER R EADINGS Final Result * TSH WITH REFLEX (02/23/2025 3:10 PM FINANCE AND ADMINISTRATION MANAGER) Pathologist [facility] TSH W/REFLEX TO FT4 1.98 0.40 - 4.50 mIU/L 02/24/2025 3:54 AM FINANCE AND ADMINISTRATION MANAGER [facility] Blood BLOOD SPECIMEN / Unknown [facility] / Unknown 02/23/2025 3:10 PM FINANCE AND ADMINISTRATION MANAGER 02/23/2025 3:10 PM FINANCE AND ADMINISTRATION MANAGER Raghu Shukla MD CHEMISTRY Final Result Performing Organization Address [facility]/ZIP Co de Phone Number [facility] [address] [place] [address], [place] [phone] * IRON PLUS IRON BINDING CAP (02/23/2025 3:10 PM FINANCE AND ADMINISTRATION MANAGER) Pathologist [facility] IRON, TOTAL TNP mcg/dL 03/03/2025 3:45 PM FINANCE AND ADMINISTRATION MANAGER [facility] Comment: TEST NOT PERFORMED The additional test requested cannot be performed due to age of the specimen. Blood BLOOD SPECIMEN / Unknown [facility] / Unknown 02/23/2025 3:10 PM FINANCE AND ADMINISTRATION MANAGER 02/23/2025 3:10 PM FINANCE AND ADMINISTRATION MANAGER Raghu Shukla MD CHEMISTRY Final Result Performing Organization Address City/[facility]/ZIP Co de Phone Number [facility] [address] [place] [address], * (ABNORMAL) CBC W PLT NO DIFF (02/23/2025 3:10 PM FINANCE AND ADMINISTRATION MANAGER) WHITE BLOOD CELL COUNT 7.2 3.8 - 10.8 Thousand/ uL 02/24/2025 4:12 AM FINANCE AND ADMINISTRATION MANAGER [facility] RED BLOOD CELL COUNT 3.18(L) 4.20 - 5.80 Million/u L 02/24/2025 4:12 AM FINANCE AND ADMINISTRATION MANAGER [facility] HEMOGLOBIN 10.8(L) 13.2 - 17.1 g/dL 02/24/2025 4:12 AM FINANCE AND ADMINISTRATION MANAGER [facility] HEMATOCRIT 32.6(L) 38.5 - 50.0 % 02/24/2025 4:12 AM FINANCE AND ADMINISTRATION MANAGER [facility] MCV 102.5(H) 80.0 - 100.0 fL 02/24/2025 4:12 AM FINANCE AND ADMINISTRATION MANAGER [facility] MCH 34.0(H) 27.0 - 33.0 pg 02/24/2025 4:12 AM FINANCE AND ADMINISTRATION MANAGER [facility] MCHC 33.1 32.0 - 36.0 g/dL 02/24/2025 4:12 AM FINANCE AND ADMINISTRATION MANAGER [facility] Comment: For adults, a slight decrease in the calculated MCHC value (in the range of 30 to 32 g/dL) is most likely not clinically significant; however, it should be interpreted with caution in correlation with other red cell parameters and the patient's clinical condition. RDW 13.0 11.0 - 15.0 % 02/24/2025 4:12 AM FINANCE AND ADMINISTRATION MANAGER [facility] PLATELET COUNT 319 140 - 400 Thousand/ uL 02/24/2025 4:12 AM FINANCE AND ADMINISTRATION MANAGER [facility] MPV 9.9 7.5 - 12.5 fL 02/24/2025 4:12 AM FINANCE AND ADMINISTRATION MANAGER [facility] Blood BLOOD SPECIMEN / Unknown [facility] / Unknown 02/23/2025 3:10 PM FINANCE AND ADMINISTRATION MANAGER 02/23/2025 3:10 PM FINANCE AND ADMINISTRATION MANAGER Raghu Shukla MD HEMATOLOGY Final Result [facility] [address] [address], * PHOSPHORUS (02/23/2025 3:10 PM FINANCE AND ADMINISTRATION MANAGER) [facility] PHOSPHATE ( PHOSPHORUS) 4.1 2.1 - 4.3 mg/dL 02/24/2025 3:54 AM FINANCE AND ADMINISTRATION MANAGER [facility] Blood BLOOD SPECIMEN / Unknown [facility] / Unknown 02/23/2025 3:10 PM FINANCE AND ADMINISTRATION MANAGER 02/23/2025 3:10 PM FINANCE AND ADMINISTRATION MANAGER Raghu Shukla MD CHEMISTRY Final Result [facility] [address] [address], * MAGNESIUM (02/23/2025 3:10 PM FINANCE AND ADMINISTRATION MANAGER) [facility] MAGNESIUM 2.2 1.5 - 2.5 mg/dL 02/24/2025 3:54 AM FINANCE AND ADMINISTRATION MANAGER [facility] Blood BLOOD SPECIMEN / Unknown [facility] / Unknown 02/23/2025 3:10 PM FINANCE AND ADMINISTRATION MANAGER 02/23/2025 3:10 PM FINANCE AND ADMINISTRATION MANAGER Raghu Shukla MD CHEMISTRY Final Result [address] [address], * (ABNORMAL) HEMOGLOBIN A1C (02/04/2025 12:52 PM CDT) [facility] HEMOGLOBIN A1C 7.8(H) <5.7 % 02/05/2025 4:25 AM CDT [facility] Comment: For someone without known diabetes, a hemoglobin A1c value of 6.5% or greater indicates that they may have diabetes and this should be confirmed with a follow-up test. For someone with known diabetes, a value <7% indicates that their diabetes is well controlled and a value greater than or equal to 7% indicates suboptimal control. A1c targets should be individualized based on duration of diabetes, age, comorbid conditions, and other considerations. Currently, no consensus exists regarding use of hemoglobin A1c for diagnosis of diabetes for children. Blood BLOOD SPECIMEN / Unknown [facility] / Unknown 02/04/2025 12:52 PM CDT 02/04/2025 12:52 PM CDT Raghu Shukla MD CHEMISTRY Final Result Performing Organization Address [facility] de Phone Number [facility] [address] [address], * (ABNORMAL) HEMOGLOBIN (02/04/2025 12:52 PM CDT) HEMOGLOBIN 12.4(L) 13.2 - 17.1 g/dL 02/05/2025 3:32 AM CDT [facility] MCV 102.8(H) 80.0 - 100.0 fL 02/05/2025 3:32 AM CDT [facility] Blood BLOOD SPECIMEN / Unknown [facility] / Unknown 02/04/2025 12:52 PM CDT 02/04/2025 12:52 PM CDT Raghu Shukla MD HEMATOLOGY Final Result Performing Organization Address [facility] de Phone Number [facility] [address] [address], * FOLIC ACID (02/04/2025 12:52 PM CDT) Pathologist [facility] FOLATE, SERUM 9.0 ng/mL 02/08/2025 12:42 PM CDT [facility] Comment: Reference Range Low: <3.4 Borderline: 3.4-5.4 Normal: >5.4 Blood BLOOD SPECIMEN / Unknown [facility] / Unknown 02/04/2025 12:52 PM CDT 02/04/2025 12:52 PM CDT Raghu Shukla MD CHEMISTRY Final Result Performing Organization Address City/[facility]/ZIP Co de Phone Number [facility] [address] [address], * VITAMIN B12 (02/04/2025 12:52 PM CDT) VITAMIN B12 507 200 - 1100 pg/mL 02/08/2025 6:32 AM CDT [facility] Blood BLOOD SPECIMEN / Unknown [facility] / Unknown 02/04/2025 12:52 PM CDT 02/04/2025 12:52 PM CDT Raghu Shukla MD CHEMISTRY Final Result Performing Organization Address [facility] Co de Phone Number [facility] [address] [address], * (ABNORMAL) BASIC METABOLIC PANEL (02/04/2025 12:52 PM CDT) Pathologist [facility] SODIUM 141 135 - 146 mmol/L 02/05/2025 5:38 AM CDT [facility] POTASSIUM 4.5 3.5 - 5.3 mmol/L 02/05/2025 5:38 AM CDT [facility] CARBON DIOXIDE 28 20 - 32 mmol/L 02/05/2025 5:38 AM CDT [facility] GLUCOSE 128(H) 65 - 99 mg/dL 02/05/2025 5:38 AM CDT [facility] Comment: Fasting reference interval For someone without known diabetes, a glucose value >125 mg/dL indicates that they may have diabetes and this should be confirmed with a follow-up test. CALCIUM 9.3 8.6 - 10.3 mg/dL 02/05/2025 5:38 AM CDT [facility] CREATININE 1.13 0.70 - 1.22 mg/dL 02/05/2025 5:38 AM CDT [facility] BUN/CREATININE RATIO SEE NOTE: 6 - 22 (calc) 02/05/2025 5:38 AM CDT [facility] Comment: Not Reported: BUN and Creatinine are within reference range. EGFR 63 > OR = 60 mL/min/1. 73m2 02/05/2025 5:38 AM CDT [facility] UREA NITROGEN (BUN) 24 7 - 25 mg/dL 02/05/2025 5:38 AM CDT [facility] ELECTROLYTE BALANCE 5(L) 7 - 17 mmol/L (calc) 02/05/2025 5:38 AM CDT [facility] CHLORIDE 108 98 - 110 mmol/L 02/05/2025 5:38 AM CDT [facility] Blood BLOOD SPECIMEN / Unknown [facility] / Unknown 02/04/2025 12:52 PM CDT 02/04/2025 12:52 PM CDT Raghu Shukla MD CHEMISTRY Final Result [facility] [address] [place] [address], from Last 3 Months Additional Health Concerns Infection Onset Date Last Indicated Rule-Out Stool Pathogen 03/08/2025 03/08/20 Insurance [employer] MEDICARE PB ONLY MEDICARE PROVIDER BASED [facility] [employer] MEDICARE PROVIDER BASED FOR LIFE Advance Directives Documents on File Type Date Recorded 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 Healthcare Directive 12/09/2017 10:24 AM H [employer] [place] * Full Code (Latest Code Status on File) Date Activated Date Inactivated Comments 01/18/2020 1:51 PM 01/18/2020 6:01 PM Question Answer Comments Code Status Discussion: Discussed * Full Code Date Activated Date Inactivated Comments 01/18/2020 12:17 PM 01/18/2020 1:51 PM Question Answer Comments Code Status Discussion: Discussed * Full Code Date Activated Date Inactivated Comments 11/08/2019 11:40 AM 11/09/2019 2:28 AM * Full Code Date Activated Date Inactivated Comments 10/25/2019 1:48 PM 10/26/2019 2:33 AM * Full Code Date Activated Date Inactivated Comments 11/12/2018 2:22 PM 11/12/2018 5:05 PM Care Teams Fire Technology Instructor Relationship Specialty Start Date End Date Raghu Shukla MD [address] [place] [address] PCP - General Family Practice 10/21/24 Dav Mae MD Dermatology 12/08/17 Gene Ramos OD [facility] [place] [id number] Ton Container Shipper 12/08/17 Candido Costello MD [address] [place] [address] T[place] LEMUS [id number] Cardiovascular Disease 12/08/17 Sg Cunha DC [address] [place], [place] [address] Chiropractor 12/08/17 Dilia Rodgers MD [address] [address] Family Practice 12/15/18
[2025-03-08 17:08] VITALS: BP 107/63; PULSE 68; RESP 18; TEMP 36.3; O2SAT 96
--- NOTE | 2025-03-08 18:44 | ED.NAVMDI ---
HPI - Nausea/Vomiting/Diarrhea General Chief complaint: Diarrhea Stated complaint: bloodwork, referred by clinic Time Seen by Provider: 03/08/25 17:42 History of Present Illness HPI Narrative: This patient comes here with the expectation that he will be admitted for a upper GI scope and a colonoscopy. We had no communication from anyone in this regard. I did speak with family members who showed me email and my chart information showing communication from a Dr. Flores in the clinic who spoke with Dr. Watson who will be doing these scopes. These doctors do not have any privileges here and there is no arrangement for admission directly or any information to anybody here in this facility in this regard. The patient himself states that he has had diarrhea for the past month but states that he feels okay at this time. He has had a drop of his hemoglobin by 3 grams/deciliter but this was checked yesterday and his hemoglobin was at 9 at that time. I did attempt to contact Dr. Watson by paging a number that we found for him but there was no return. I did speak with several family members stating that they perhaps came to the wrong hospital. I did review the communication through my chart and there is no clarity in this regard. The patient and family members wish to return home and he seems to be stable and will not likely have any complication. They will follow up tomorrow with the primary physician to get better clarity of plans. Related Data Home Medications ?Medication ?Instructions ?Recorded ?Confirmed allopurinol 300 mg tablet 300 mg PO DAILY 03/08/25 03/08/25 apixaban 5 mg tablet (Eliquis) 5 mg PO BID 03/08/25 03/08/25 empagliflozin 10 mg tablet 10 mg PO DAILY 03/08/25 03/08/25 (Jardiance) Held on 03/08/25. Instructions: Doctor's Order famotidine 20 mg tablet 20 mg PO BID 03/08/25 03/08/25 fluticasone propionate 110 inhalation 03/08/25 mcg/actuation HFA aerosol inhaler propranolol 20 mg tablet 20 mg PO BID 03/08/25 03/08/25 simvastatin 5 mg tablet 5 mg PO QPM 03/08/25 03/08/25 triamcinolone acetonide 0.1 % applic topical BID PRN itch 03/08/25 topical cream triamcinolone acetonide 0.1 % topical 03/08/25 topical ointment Allergies Allergy/AdvReac Type Severity Reaction Status Date / Time codeine AdvReac Severe Hallucinati Verified 03/08/25 17:08 ng polyester fibers AdvReac Intermediate itching Verified 03/08/25 17:08 Exam Const: Vital Signs, click to edit/add: Vital Signs - 24 hr 03/08/25 17:08 Temperature 97.4 F L Pulse Rate [Pulse Oximeter] 68 Respiratory Rate 18 Blood Pressure [Ri ght Upper Arm] 107/63 Pulse Oximetry 96 Oxygen Delivery Me thod Room Air Course Vital Signs Vital signs: Initial Vital Signs Temperature 97.4 F L 03/08/25 17:08 Temperature Source Temporal Artery Scan 03/08/25 17:08 Pulse Rate 68 03/08/25 17:08 Respiratory Rate 18 03/08/25 17:08 Blood Pressure 107/63 03/08/25 17:08 Blood Pressure Mean 77 03/08/25 17:08 Blood Pressure Position Sitting 03/08/25 17:08 Pulse Oximetry 96 03/08/25 17:08 Oxygen Delivery Method Room Air 03/08/25 17:08 Vital Signs Temperature 97.4 F L 03/08/25 17:08 Pulse Rate 68 03/08/25 17:08 Respiratory Rate 18 03/08/25 17:08 Blood Pressure 107/63 03/08/25 17:08 Pulse Oximetry 96 03/08/25 17:08 Oxygen Delivery Method Room Air 03/08/25 17:08 Temperature 97.4 F L 03/08/25 17:08 Pulse Rate 68 03/08/25 17:08 Respiratory Rate 18 03/08/25 17:08 Blood Pressure 107/63 03/08/25 17:08 Pulse Oximetry 96 03/08/25 17:08 Oxygen Delivery Method Room Air 03/08/25 17:08 Discharge Plan Discharge Clinical Impression: Diarrhea, Anemia Patient Disposition: Home, Self-Care Condition: Stable Additional Instructions: Follow-up with primary physician and process control tech tomorrow for more clarity and specific plans going forward. Return if symptoms are worsening. Prescriptions: No Action triamcinolone acetonide 0.1 % cream topical BID PRN (Reason: itch) famotidine 20 mg tablet 20 mg PO BID simvastatin 5 mg tablet 5 mg PO QPM triamcinolone acetonide 0.1 % ointment topical allopurinol 300 mg tablet 300 mg PO DAILY propranolol 20 mg tablet 20 mg PO BID fluticasone propionate 110 mcg/actuation HFA aerosol inhaler inhalation Eliquis 5 mg tablet 5 mg PO BID Jardiance 10 mg tablet 10 mg PO DAILY Follow Up/Referrals: Juan Carlos Gallegos MD [Primary Care Provider, Family Practice] Stand Alone Forms: [facility] Info Instructions
[2025-03-08 19:24] VITALS: BP 109/95; PULSE 53; RESP 18; O2SAT 99
== END 2025-03-08 19:26 | disposition home or self-care (01) ==
PROVIDERS: Emergency Provider Emergency Medicine Emergency Medical Services; PCP Student in an Organized Health Care Education/Training Program
DX: R19.7 Diarrhea, unspecified (principal); D64.9 Anemia, unspecified
CPT/HCPCS: 99284

== ENCOUNTER 2025-03-25 13:54 | Outpatient (CLI) | payer MEDICARE, OTHER, SELFPAY ==
--- NOTE | 2025-03-25 14:55 | P.ANES_ITS ---
Anesthesia Charges Start Date/Time Anesthesia Start Date: 03/25/25 Anesthesia Start Time: 14:08 Stop Date/Time Anesthesia Stop Date: 03/25/25 Anesthesia Stop Time: 15:04 Summary Extremes of Age - Over 70 or under 1: MDA Coding CPT Codes CPT Codes: ANES UPR LWR GI NDSC PX - 38509 ([id number]) P3 - PATIENT W/SEVERE SYS DISEASE, QK - HUMAN RESOURCES OFFICER 2-4 CNCRNT ANES PROC, QX - SUPERVISOR TELLERS SVC W/ MD MED DIRECTION Additional Codes: Summary - Extremes of Age - Over 70 or under 1: MDA ([id number])
--- NOTE | 2025-03-25 14:55 | W.ANESCHARGE ---
Anesthesia Charges Start Date/Time Anesthesia Start Date: 03/25/25 Anesthesia Start Time: 14:08 Stop Date/Time Anesthesia Stop Date: 03/25/25 Anesthesia Stop Time: 15:04 Summary Extremes of Age - Over 70 or under 1: MDA Coding CPT Codes CPT Codes: ANES UPR LWR GI NDSC PX - 63681 ([id number]) P3 - PATIENT W/SEVERE SYS DISEASE, QK - BAR CATCHER 2-4 CNCRNT ANES PROC, QX - PROGRAMMER ANALYST SVC W/ MD MED DIRECTION Additional Codes: Summary - Extremes of Age - Over 70 or under 1: MDA ([id number])
--- NOTE | 2025-03-25 15:07 | P.ANES_ITS ---
Anesthesia Charges Start Date/Time Anesthesia Start Date: 03/25/25 Anesthesia Start Time: 14:08 Stop Date/Time Anesthesia Stop Date: 03/25/25 Anesthesia Stop Time: 15:04 Summary Extremes of Age - Over 70 or under 1: REGIONAL OPERATIONS DIRECTOR Coding CPT Codes CPT Codes: ANES UPR LWR GI NDSC PX - 90126 ([id number]) P3 - PATIENT W/SEVERE SYS DISEASE, QK - SNOW FENCE ERECTOR 2-4 CNCRNT ANES PROC, QX - REGIONAL OPERATIONS DIRECTOR SVC W/ MD MED DIRECTION Additional Codes: Summary - Extremes of Age - Over 70 or under 1: REGIONAL OPERATIONS DIRECTOR ([id number])
--- NOTE | 2025-03-25 15:07 | W.ANESCHARGE ---
Anesthesia Charges Start Date/Time Anesthesia Start Date: 03/25/25 Anesthesia Start Time: 14:08 Stop Date/Time Anesthesia Stop Date: 03/25/25 Anesthesia Stop Time: 15:04 Summary Extremes of Age - Over 70 or under 1: NETWORK DEVELOPER Coding CPT Codes CPT Codes: ANES UPR LWR GI NDSC PX - 57822 ([id number]) P3 - PATIENT W/SEVERE SYS DISEASE, QK - CUPOLA MELTING SUPERVISOR 2-4 CNCRNT ANES PROC, QX - NETWORK DEVELOPER SVC W/ MD MED DIRECTION Additional Codes: Summary - Extremes of Age - Over 70 or under 1: NETWORK DEVELOPER ([id number])
== END 2025-03-25 13:55 | disposition home or self-care (01) ==
PROVIDERS: PCP Student in an Organized Health Care Education/Training Program; Visit Provider Internal Medicine Gastroenterology
DX: D50.9 Iron deficiency anemia, unspecified (principal); D49.0 Neoplasm of unspecified behavior of digestive system; K57.30 Diverticulosis of large intestine without perforation or abscess without bleeding; R19.7 Diarrhea, unspecified; K31.89 Other diseases of stomach and duodenum
CPT/HCPCS: 00813; 43239; 45380; 45381; 99100; J2704; J3490